=== PATIENT | male | born 1985 | race Caucasian/White ===

== ENCOUNTER 2017-05-21 00:18 | Emergency (ER) | payer OTHER ==
[~2017-05-21 00:18] MED LIST: DIAZ10 PO; DIAZ5 PO
[2017-05-21 00:27] VITALS: BP 175/111; PULSE 77; RESP 18; O2SAT 98
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
--- NOTE | 2017-05-21 02:16 | RADRPT ---
EXAM DATE/TIME: 05/21/2017 01:28 [facility] COMPARISON: No previous studies available for comparison. INDICATIONS : Altered mental status. RADIATION DOSE: 45.07 CTDIvol (mGy) MEDICAL HISTORY : Bipolar SURGICAL HISTORY : None. ENCOUNTER: Initial ACUITY: 1 day PAIN SCALE: Non-responsive LOCATION: cranial TECHNIQUE: Multiple contiguous axial images were obtained of the head. Using automated exposure control and adj ustment of the mA and/or kV according to patient size, radiation dose was kept as low as reasonably a chievable to obtain optimal diagnostic quality images. DICOM format image data is available electro nically for review and comparison. FINDINGS: CEREBRUM: The ventricles are normal for age. No evidence of midline shift, mass lesion, hemorrhage or acute in farction. No extra-axial fluid collections are seen. POSTERIOR FOSSA: The cerebellum and brainstem are intact. The 4th ventricle is midline. The cerebellopontine angle i s unremarkable. EXTRACRANIAL: The visualized portion of the orbits is intact. SKULL: The calvaria is intact. No evidence of skull fracture. CONCLUSION: 1. No evidence of acute intracranial pathology. No masses are identified. Negrito Zelaya MD on May 21, 2017 at 2:13 Board Certified Radiologist. This report was verified electronically.
== END 2017-05-21 02:44 ==
LOC: NEPD 00:18
DX: R41.82 Altered mental status, unspecified (principal); S70.211A Abrasion, right hip, initial encounter; F31.9 Bipolar disorder, unspecified; F41.9 Anxiety disorder, unspecified; F17.200 Nicotine dependence, unspecified, uncomplicated; V49.9XXA Car occupant (driver) (passenger) injured in unspecified traffic accident, initial encounter; Z88.5 Allergy status to narcotic agent
CPT/HCPCS: 70450; 71045; 99284

== ENCOUNTER 2017-05-25 18:09 | Emergency (ER) | payer SELFPAY ==
[~2017-05-25] VITALS: Ht 188 cm; Wt 107.4 kg
[2017-05-25 18:14] VITALS: BP 172/100; PULSE 88; RESP 18; TEMP 99.7; O2SAT 98
[2017-05-25] MEDS ORDERED: HYDR50TA94 PO (18:59)
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
== END 2017-05-25 19:16 | disposition home or self-care (01) ==
LOC: PHEFT 18:09
DX: F41.9 Anxiety disorder, unspecified (principal); F31.9 Bipolar disorder, unspecified; Z72.0 Tobacco use
CPT/HCPCS: 99283